=== PATIENT | female | born 1935 | race Caucasian/White ===

== ENCOUNTER 2022-02-20 06:43 | Inpatient (IN) | payer MEDICAID ==
[~2022-02-20] VITALS: Ht 162.6 cm; Wt 47.7 kg
[2022-02-20] VITALS (36 sets, daily range): BP systolic 112–166; BP diastolic 46–106
[2022-02-20 08:22] LABS: BASOPHILS % 0.2 % (0.0-2.0); EOSINOPHILS % 0.2 % (0.0-5.0); HEMATOCRIT. 35.8 % (36.0-48.0); HEMOGLOBIN. 12.7 g/dL (12.0-16.0); LYMPHOCYTES % 10.6 % (20.0-50.0); MEAN CORPUSCULAR HEMOGLOBIN 30.1 pg (28.0-32.0); MEAN PLATELET VOLUME 7.6 fl (7.4-10.4); MONOCYTES % 4.4 % (2.0-8.0); NEUTROPHILS % 84.6 % (40.0-76.0); PLATELET 358 x1000/uL (130-400); RED BLOOD CELL COUNT 4.21 mill/uL (4.2-5.4); RED CELL DISTRIBUTION WIDTH 15.4 % (11.6-14.6)
[2022-02-20 08:29] LABS: CHLORIDE 79 mEq/L (98-107)
[2022-02-20] MEDS ORDERED: AMIODARONE HCL 900 MG in DEXT 5% WATER 482 ML IV PRN ×4 (09:00)
[2022-02-20] MEDS ORDERED: POTASSIUM CHLORIDE 20MEQ TABLET SR PO ONE (09:30)
[2022-02-20] MEDS ORDERED: ASPIRIN 81MG TABLET PO ONE (09:30)
[2022-02-20] MEDS ORDERED: POTASSIUM CHLORIDE INJ 40 MEQ in DEXT 5% WATER 250 ML IV ONE (09:30)
[2022-02-20] MEDS ORDERED: SODIUM CHLORIDE 0.9% 1,000 ML IV ONE (09:30)
[2022-02-20] MEDS ORDERED: KCL 20MEQ/100ML PREMIX 100 ML IV SCH (10:00)
[2022-02-20] MEDS ORDERED: MAGNESIUM 1 G PREMIX 100 ML IV ONE (10:00)
[2022-02-20] MEDS ORDERED: DEXTROSE 50% WATER 50ML SYRINGE IV PRN (10:15)
[2022-02-20] MEDS ORDERED: ACETAMINOPHEN 325MG TABLET PO PRN (10:15)
[2022-02-20] MEDS ORDERED: ONDANSETRON HCL 4MG/2ML INJ IV PRN (10:15)
[2022-02-20] MEDS ORDERED: CEFTRIAXONE 1 G PREMIX 50 ML IV SCH (11:00)
[2022-02-20] MEDS ORDERED: MAGNESIUM 1 G PREMIX 100 ML IV SCH (11:15)
[2022-02-20] MEDS ORDERED: METOPROLOL TARTRATE 5MG/5ML VIAL IV PRN (11:15)
[2022-02-20] MEDS ORDERED: AMIODARONE HCL 150 MG in DEXT 5% WATER 100 ML IV ONE (11:15)
[2022-02-20] MEDS ORDERED: DIGOXIN 500MCG/2ML AMP IV NR (11:15)
[2022-02-20] MEDS: SODIUM CHLORIDE 0.9% 1,000 ML IV SCH ×2 (12:30→23:35)
[2022-02-20 12:36] LABS: PHOSPHORUS 2.5 mg/dL (2.5-4.9)
[2022-02-20] MEDS: BLOOD SUGAR DIAGNOSTIC STRIP TEST SCH ×3 (13:10→21:00)
[2022-02-20] MEDS: INSULIN LISPRO 100 UNITS/ML SUBCUT SCH ×3 (13:34→23:29)
[2022-02-20] MEDS: METOPROLOL TARTRATE 50MG TABLET PO SCH ×2 (14:27→20:59)
[2022-02-20] MEDS ORDERED: FENO200C27 PO (15:45)
[2022-02-20] MEDS ORDERED: CLOP75TA33 PO (15:45)
[2022-02-20] MEDS ORDERED: LINA5TAB PO (15:45)
[2022-02-20] MEDS ORDERED: AMLO-375 PO (15:45)
[2022-02-20] MEDS ORDERED: ROSU20TA2 PO (15:45)
[2022-02-20] MEDS ORDERED: NIMO30CA PO (15:45)
[2022-02-20] MEDS ORDERED: IRBE150T24 PO (15:45)
[2022-02-20] MEDS ORDERED: PREG75CA PO (15:45)
[2022-02-20] MEDS ORDERED: LANS30CA55 PO (15:45)
[2022-02-20] MEDS ORDERED: ALPR-340 PO (15:45)
[2022-02-20] MEDS ORDERED: METF-416 PO (15:45)
[2022-02-20] MEDS ORDERED: TOPUD PO (15:45)
[2022-02-20 16:26] LABS: CHLORIDE 84 mEq/L (98-107)
[2022-02-20 18:34] LABS: CHLORIDE 83 mEq/L (98-107)
[2022-02-21] VITALS (64 sets, daily range): BP systolic 110–170; BP diastolic 41–107
[2022-02-21 01:34] LABS: CHLORIDE 84 mEq/L (98-107)
[2022-02-21] MEDS ORDERED: AMIODARONE HCL 900 MG in DEXT 5% WATER 482 ML IV SCH (05:00)
[2022-02-21 06:16] LABS: BASOPHILS % 0.1 % (0.0-2.0); EOSINOPHILS % 0.6 % (0.0-5.0); HEMATOCRIT. 34.9 % (36.0-48.0); HEMOGLOBIN. 12.1 g/dL (12.0-16.0); LYMPHOCYTES % 12.1 % (20.0-50.0); MEAN CORPUSCULAR HEMOGLOBIN 29.4 pg (28.0-32.0); MONOCYTES % 5.5 % (2.0-8.0); NEUTROPHILS % 81.7 % (40.0-76.0); PLATELET 347 x1000/uL (130-400); RED CELL DISTRIBUTION WIDTH 15.3 % (11.6-14.6)
[2022-02-21 06:26] LABS: CHLORIDE 85 mEq/L (98-107)
[2022-02-21] MEDS: BLOOD SUGAR DIAGNOSTIC STRIP TEST SCH ×4 (08:11→21:00)
[2022-02-21] MEDS: INSULIN LISPRO 100 UNITS/ML SUBCUT SCH ×4 (08:20→21:00)
[2022-02-21] MEDS: METOPROLOL TARTRATE 25MG TABLET PO SCH ×2 (09:00→21:18)
[2022-02-21] MEDS: ENOXAPARIN 60MG/0.6ML SYR SUBCUT SCH (09:42)
[2022-02-21] MEDS ORDERED: SODIUM CHLORIDE IV ONE ×2 (10:00→11:00)
[2022-02-21] MEDS: CEFTRIAXONE 1,000 MG in DEXTROSE 5% WATER 50 ML IV SCH (11:22)
[2022-02-21 12:24] LABS: CHLORIDE 84 mEq/L (98-107)
[2022-02-21 18:53] LABS: CHLORIDE 88 mEq/L (98-107)
[2022-02-21] MEDS: SODIUM CHL 0.9% + KCL 20MEQ/L 1,000 ML IV SCH (21:20)
[2022-02-22] VITALS (21 sets, daily range): BP systolic 114–171; BP diastolic 55–101
[2022-02-22 06:02] LABS: PROTHROMBIN TIME 10.9 sec (9.6-11.0)
[2022-02-22] MEDS: INSULIN LISPRO 100 UNITS/ML SUBCUT SCH ×2 (07:41→12:56)
[2022-02-22] MEDS: BLOOD SUGAR DIAGNOSTIC STRIP TEST SCH ×2 (07:41→11:52)
[2022-02-22] MEDS ORDERED: LIDOCAINE HCL 1% 10 MG/ML 10ML VIAL ONE (08:33)
[2022-02-22] MEDS: ENOXAPARIN 60MG/0.6ML SYR SUBCUT SCH (09:58)
[2022-02-22] MEDS: METOPROLOL TARTRATE 25MG TABLET PO SCH (09:58)
[2022-02-22] MEDS: SODIUM CHL 0.9% + KCL 20MEQ/L 1,000 ML IV SCH (09:59)
[2022-02-22] MEDS ORDERED: APIX5TAB MT (10:17)
[2022-02-22] MEDS ORDERED: METO25TA6 PO (10:17)
[2022-02-22 10:42] LABS: CHLORIDE 95 mEq/L (98-107)
[2022-02-22] MEDS: CEFTRIAXONE 1,000 MG in DEXTROSE 5% WATER 50 ML IV SCH (11:28)
[2022-02-22 12:03] LABS: BASOPHILS % 0.8 % (0.0-2.0); EOSINOPHILS % 1.8 % (0.0-5.0); HEMOGLOBIN. 11.8 g/dL (12.0-16.0); LYMPHOCYTES % 18.3 % (20.0-50.0); MEAN CORPUSCULAR HEMOGLOBIN 29.7 pg (28.0-32.0); MEAN PLATELET VOLUME 8.4 fl (7.4-10.4); MONOCYTES % 6.2 % (2.0-8.0); NEUTROPHILS % 72.9 % (40.0-76.0); PLATELET 246 x1000/uL (130-400); RED BLOOD CELL COUNT 3.96 mill/uL (4.2-5.4); RED CELL DISTRIBUTION WIDTH 15.6 % (11.6-14.6)
== END 2022-02-22 17:15 | disposition home or self-care (01) | DRG 720 ==
LOC: ER 06:43 → CVICU 09:20 → EDBEDREQSVC 09:58 → EDBEDREQ 09:58 → ENRESERV 11:51 → 5EST 02-22 04:56
PROVIDERS: ADMIT Internal Medicine; ATTEND Internal Medicine
PROC: 02HV33Z Insertion of Infusion Device into Superior Vena Cava, Percutaneous Approach (ICD-10-PCS; principal; 2022-02-22)
PROC: B548ZZA Ultrasonography of Superior Vena Cava, Guidance (ICD-10-PCS; 2022-02-22)
DX: A41.9 Sepsis, unspecified organism (principal); J96.01 Acute respiratory failure with hypoxia; G93.41 Metabolic encephalopathy; I21.A1 Myocardial infarction type 2; E44.0 Moderate protein-calorie malnutrition; I47.1 Supraventricular tachycardia; E87.1 Hypo-osmolality and hyponatremia; I48.91 Unspecified atrial fibrillation; I47.2 Ventricular tachycardia; E83.42 Hypomagnesemia; E87.6 Hypokalemia; Z20.822 Contact with and (suspected) exposure to COVID-19; E11.65 Type 2 diabetes mellitus with hyperglycemia; I10 Essential (primary) hypertension; E87.8 Other disorders of electrolyte and fluid balance, not elsewhere classified; Z79.899 Other long term (current) drug therapy; Z79.4 Long term (current) use of insulin; Z86.73 Personal history of transient ischemic attack (TIA), and cerebral infarction without residual deficits
CPT/HCPCS: 36415; 36573; 71045; 80048; 80053; 80061; 82140; 82533; 82962; 83735; 83930; 84100; 84145; 84295; 84443; 84484; 85025; 87426; 93005; 93306; 97162; 99291; C1725; C1893; C9803; J0282; J0696; J1160; J1650; J1815; J3475; J3480; J3490; J7030; J7040; J7060; J7131

== ENCOUNTER 2022-03-25 13:36 | Emergency (ER) | payer MEDICAID ==
[~2022-03-25] VITALS: Ht 152.4 cm; Wt 50.0 kg
[~2022-03-25 13:36] MED LIST: ALPR-340 PO; AMLO-375 PO; APIX5TAB MT; FENO200C27 PO; IRBE150T24 PO; LANS30CA55 PO; LINA5TAB PO; METF-416 PO; METO25TA6 PO; NIMO30CA PO; PREG75CA PO; ROSU20TA2 PO; TOPUD PO
[2022-03-25] MEDS ORDERED: CEPH500C2 MT (16:02)
[2022-03-25 20:36] VITALS: BP 112/78
== END 2022-03-25 20:37 | disposition home or self-care (01) ==
LOC: ER 13:36
DX: M79.669 Pain in unspecified lower leg (principal); Z59.00 Homelessness unspecified; E11.9 Type 2 diabetes mellitus without complications; I10 Essential (primary) hypertension; I25.2 Old myocardial infarction; Z79.899 Other long term (current) drug therapy
CPT/HCPCS: 82962; 99281; 99282